=== PATIENT | female | born 1950 | race Caucasian/White ===

== ENCOUNTER → 2016-08-22 | Day surgery (SDC) | payer OTHER ==
[~2016-08-22] VITALS: Ht 162.5 cm; Wt 68.9 kg
[~2016-08-22] MED LIST: BAYER ASPIRIN C81 MG PO; TENORETIC-25/501 TAB PO
--- NOTE | ~2016-08-22 | WILSON ---
[place], [place] CATARACT EXTRACTION NAME: DEMETRICE CABRERA [facility] #: [id number] UNIT #: [id number] ROOM: DOCTOR: RONAL BRYAN MD DATE: 08/22/16 PREOPERATIVE DIAGNOSIS: Cataract, left eye. POSTOPERATIVE DIAGNOSIS: Cataract, left eye. OPERATION: Extracapsular cataract extraction by phacoemulsification with posterior chamber intraocular lens implantation, left eye. ANESTHESIA: Monitored standby. OPERATIVE FINDINGS AND PROCEDURE: 2% Xylocaine topical anesthetic gel was applied to the eye in the preop area. The patient was taken to the operating room and prepped and draped in the standard fashion for sterile intraocular surgery. A time out procedure was performed verifying correct patient, correct site and corrects lens with Jacobo Bryan M.D. The operating microscope was swung into position and the lid speculum was inserted. Using a paracentesis blade, a paracentesis was made through clear cornea. Viscoelastic was used to fill the anterior chamber. Using a metal keratome a 2.4 mm self-sealing clear corneal cataract incision was made temporally at the limbus. Using a pre-bent 25 gauge cystotome needle, a standard continuous curvilinear capsulorrhexis was performed. The anterior capsule was removed with forceps. The lens nucleus was hydrodissected and phacoemulsified in the posterior chamber. Cortical material was removed with the irrigation aspiration hand piece and the posterior capsule was then polished with a curet under irrigation. The posterior chamber and capsular bag were filled with viscoelastic. A posterior chamber intraocular lens manufactured by: [employer], Model #[id number], and 20.0 diopters in strength was then inserted into the posterior chamber and within the capsular bag using the lens cartridge and injector system. Viscoelastic was removed using the irrigation aspiration handpiece. The anterior chamber was filled with balanced salt solution through the paracentesis. Both the paracentesis site and cataract incisions were hydrated with BSS and verified to be water-tight and self-sealing. Cefuroxime 1 mg/0.1 mL was injected into the anterior chamber through the paracentesis site. The incision checked to be water-tight using a Weck-joselo sponge. The integrity of the cataract wound and ocular tension were checked. Lid speculum and drapes were removed. One drop of Ocuflox was applied to the eye. The patient was transferred from the operating room to the recovery room in satisfactory condition. RONAL LUNA MD CM:OPRECORD:CATARACT EXTRACTION 24 24 RONAL BRYAN MD 08/22/[id number] DAVID [email or web address].R
[2016-08-22 09:50] VITALS: BP 132/74
[2016-08-22 10:59] VITALS: BP 114/66
[2016-08-22 11:14] VITALS: BP 136/62
[2016-08-22 11:29] VITALS: BP 129/43
[2016-08-22 11:44] VITALS: BP 125/64
== END | disposition home or self-care (01) ==
LOC: SDC 08-17 13:15
DX: H26.9 Unspecified cataract (principal); I10 Essential (primary) hypertension; F17.210 Nicotine dependence, cigarettes, uncomplicated; Z90.49 Acquired absence of other specified parts of digestive tract; Z98.890 Other specified postprocedural states

== ENCOUNTER → 2017-08-21 | Outpatient (CLI) | payer MEDICARE, OTHER | END | disposition home or self-care (01) | LOC: MAMMO 07-31 10:40 → RAD 07-31 11:00 → MAMMO 10:01 | DX: Z12.31 Encounter for screening mammogram for malignant neoplasm of breast (principal); E55.9 Vitamin D deficiency, unspecified; Z78.0 Asymptomatic menopausal state ==

== ENCOUNTER 2018-01-29 12:51 | Inpatient (IN) | payer MEDICARE, OTHER ==
[~2018-01-29] VITALS: Ht 160 cm; Wt 69.9 kg
--- NOTE | ~2018-01-29 | EKG ---
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
[2018-01-29 12:53] VITALS: BP 122/83
[2018-01-29 13:19] LABS: BASO % 0.2 % (0.0-1.0); EOS % 0.1 % (1.0-4.0); HEMATOCRIT 39.2 % (37.0-47.0); HEMOGLOBIN 14.2 g/dl (12.0-16.0); LYMPH # 1.3 10*3/uL (1.3-4.4); LYMPH % 11.9 % (27.0-41.0); MEAN CELL VOLUME 89.7 fl (81.0-99.0); MEAN CORPUSCULAR HGB 32.5 pg (27.0-31.0); MEAN CORPUSCULAR HGB CONC 36.2 g/dl (33.0-37.0); MEAN PLATELET VOLUME 9.1 fl (9.6-12.3); MONO # 0.6 10*3/uL (0.1-1.0); MONO % 5.5 % (3.0-9.0); NEUT # 8.6 10*3/uL (2.3-7.9); NEUT % 81.8 % (47.0-73.0); PLATELET COUNT AUTOMATED 201 10*3/uL (130-400); RED BLOOD COUNT 4.37 10*6/uL (4.10-5.10); RED CELL DISTRI WIDTH 12.7 % (0-14.5); WHITE BLOOD COUNT 10.6 10*3/uL (4.8-10.8)
[2018-01-29] MEDS ORDERED: ATENOLOL-CHLOR1 EAC1 PO (13:23)
[2018-01-29] MEDS ORDERED: OYSTER SHELL 51 EACH PO (13:24)
[2018-01-29 13:28] LABS: ACT PARTIAL THROMBO TIME 23.6 SECONDS (20.8-31.5); INTERNATIONAL NORM RATIO 0.9 (2.0-3.5)
[2018-01-29 13:38] LABS: ALBUMIN 3.5 gm/dl (3.1-4.5); ALKALINE PHOSPHATASE 188 U/L (45-117); BUN 16 mg/dl (7-24); CHLORIDE 94 mmol/L (98-107); LIPASE 100 U/L (73-393); POTASSIUM 3.3 mmol/L (3.5-5.1); SGOT/AST 31 IU/L (3-35); SGPT/ALT 28 U/L (12-78); SODIUM 130 mmol/L (136-145); TOTAL PROTEIN 7.6 gm/dL (6.4-8.2)
[2018-01-29 13:40] LABS: TROPONIN I < 0.015 ng/ml (<0.045)
[2018-01-29 14:24] LABS: BILIRUBIN NEGATIVE (NEGATIVE); BLOOD 3+ (NEGATIVE); CLARITY CLOUDY (CLEAR); COLOR YELLOW (YELLOW); GLUCOSE NEGATIVE (NEGATIVE); KETONE NEGATIVE (NEGATIVE); LEUKO ESTERASE 2+ (NEGATIVE); NITRITE NEGATIVE (NEGATIVE); UROBILINOGEN 0.2 E.U./dl (0.2-1.0)
[2018-01-29 14:38] LABS: WBC TNTC wbc/hpf (0-5)
[2018-01-29 14:39] LABS: BACTERIA 3+
[2018-01-29 14:46] VITALS: BP 110/48
[2018-01-29 16:22] VITALS: BP 110/50
[2018-01-29 17:20] VITALS: BP 110/50; BP 140/46
[2018-01-29 20:00] VITALS: BP 120/60
[2018-01-30] VITALS: BP 114/50
[2018-01-30 07:39] LABS: BASO % 0.3 % (0.0-1.0); EOS % 0.2 % (1.0-4.0); HEMATOCRIT 33.8 % (37.0-47.0); LYMPH # 0.8 10*3/uL (1.3-4.4); LYMPH % 13.1 % (27.0-41.0); MEAN CELL VOLUME 90.6 fl (81.0-99.0); MEAN CORPUSCULAR HGB 31.9 pg (27.0-31.0); MEAN CORPUSCULAR HGB CONC 35.2 g/dl (33.0-37.0); MEAN PLATELET VOLUME 9.4 fl (9.6-12.3); MONO # 0.5 10*3/uL (0.1-1.0); MONO % 8.2 % (3.0-9.0); NEUT # 4.6 10*3/uL (2.3-7.9); NEUT % 77.4 % (47.0-73.0); PLATELET COUNT AUTOMATED 142 10*3/uL (130-400); RED BLOOD COUNT 3.73 10*6/uL (4.10-5.10); RED CELL DISTRI WIDTH 12.7 % (0-14.5); WHITE BLOOD COUNT 5.9 10*3/uL (4.8-10.8)
[2018-01-30 07:40] LABS: HEMOGLOBIN 11.9 g/dl (12.0-16.0)
[2018-01-30 08:00] VITALS: BP 100/48
[2018-01-30 08:14] LABS: BUN 12 mg/dl (7-24); CHLORIDE 96 mmol/L (98-107); CREATININE 0.73 mg/dL (0.55-1.02); POTASSIUM 2.8 mmol/L (3.5-5.1); SODIUM 130 mmol/L (136-145)
[2018-01-30 10:40] LABS: THYROID STIM HORMONE (HS) 0.939 uIU/ml (0.358-4.75)
[2018-01-30 11:20] LABS: FERRITIN 452.4 ng/mL (10.0-291.0)
[2018-01-30 12:00] VITALS: BP 127/60
[2018-01-30 16:00] VITALS: BP 118/60
[2018-01-30 20:00] VITALS: BP 112/48
[2018-01-31] VITALS: BP 108/44
[2018-01-31 08:00] VITALS: BP 124/50
[2018-01-31 12:00] VITALS: BP 123/54
[2018-01-31 16:00] VITALS: BP 126/56
[2018-01-31] MEDS ORDERED: CIPRO500 MG PO (16:34)
[2018-01-31] MEDS ORDERED: KLOR-CON 1010 ME1 PO (16:40)
[2018-01-31] MEDS ORDERED: VITAMIN B12-FO1 EACH PO (16:40)
== END 2018-01-31 18:03 | disposition home or self-care (01) | DRG 690 ==
LOC: ED 12:51 → 5E 16:17 → EDHOLD 16:17 → 5E 16:53
PROVIDERS: Emergency Medicine; Internal Medicine
DX: N30.01 Acute cystitis with hematuria (principal); I10 Essential (primary) hypertension; B96.20 Unspecified Escherichia coli [E. coli] as the cause of diseases classified elsewhere; Z72.0 Tobacco use; Z79.82 Long term (current) use of aspirin; Z79.899 Other long term (current) drug therapy

== ENCOUNTER → 2019-12-23 | Outpatient (CLI) | payer MEDICARE ==
[~2019-12-23] MED LIST changes: +ATENOLOL-CHLOR1 EAC1 PO; +CIPRO500 MG PO; +KLOR-CON 1010 ME1 PO; +OYSTER SHELL 51 EACH PO; +VITAMIN B12-FO1 EACH PO
== END | disposition home or self-care (01) ==
LOC: MAMMO 09:15
PROVIDERS: ATTEND Family Medicine
DX: Z12.31 Encounter for screening mammogram for malignant neoplasm of breast (principal)

== ENCOUNTER 2021-08-19 19:10 | Emergency (ER) | payer MEDICARE ==
[~2021-08-19] VITALS: Ht 157.4 cm; Wt 59.9 kg
[2021-08-19] MEDS ORDERED: VALTREX1000 MG PO (20:20)
== END 2021-08-19 20:37 | disposition home or self-care (01) ==
LOC: ED 19:10
DX: B02.9 Zoster without complications (principal); Z79.899 Other long term (current) drug therapy; Z79.82 Long term (current) use of aspirin

== ENCOUNTER → 2022-04-16 | Outpatient (CLI) | payer OTHER ==
[~2022-04-16] MED LIST changes: +CIPROFLOXACIN500 M4 PO; +GABAPENTIN100 M2 PO; +IBU800 M2 PO; +VALTREX1000 MG PO
== END | disposition home or self-care (01) ==
LOC: MAMMO 04-11 10:30
PROVIDERS: ATTEND Internal Medicine
DX: Z12.31 Encounter for screening mammogram for malignant neoplasm of breast (principal); D64.9 Anemia, unspecified

== ENCOUNTER → 2023-01-10 | Outpatient (CLI) | payer OTHER | END | disposition home or self-care (01) | LOC: RAD 14:33 | PROVIDERS: ATTEND Internal Medicine | DX: R07.1 Chest pain on breathing (principal) ==

== ENCOUNTER → 2023-07-30 | Outpatient (CLI) | payer OTHER | END | disposition home or self-care (01) | LOC: RAD 10:47 | PROVIDERS: ATTEND Internal Medicine | DX: R07.1 Chest pain on breathing (principal); J98.4 Other disorders of lung ==